=== PATIENT | female | born 2000 | race Native Hawaiian/Other Pacific Islander ===

== ENCOUNTER 2020-12-05 09:55 | Emergency (ER) | payer OTHER ==
[~2020-12-05] VITALS: Ht 172.7 cm; Wt 52.2 kg
[2020-12-05 10:21] LABS: PLATELET COUNT 233 K/uL (152-353)
[2020-12-05 11:23] VITALS: BP 103/66; TEMP 98.8
== END 2020-12-05 11:30 | disposition home or self-care (01) ==
LOC: ED 09:55
PROVIDERS: Family Medicine
DX: R55 Syncope and collapse (principal); M79.18 Myalgia, other site
CPT/HCPCS: 80053; 85027; 93005; 96374; 96375; 99284; J1885; J2405